=== PATIENT | female | born 1980 | race Caucasian/White ===

== ENCOUNTER 2016-05-01 13:45 | Observation (INO) | payer MEDICAID, OTHER ==
[~2016-05-01 13:45] MED LIST: PENI500T PO; PREN0.01 PO
[2016-05-01 13:46] VITALS: BP 133/83; PULSE 95; RESP 18; TEMP 98.5; O2SAT 98
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
[2016-05-01 16:36] LABS: BLOOD, URINE NEG (NEG); GLUCOSE,URINE NEG (NEG); KETONE, URINE NEG (NEG); NITRITE,URINE NEG (NEG); SQUAMOUS EPITHELIAL CELL URINE 2 /hpf (0-5); URINE COLOR LIGHT-YELLOW (YELLW/STRAW)
[2016-05-01 16:40] LABS: AMPHETAMINE, URINE NEG (NEG); BARBITURATES, URINE NEG (NEG); COCAINE, URINE NEG (NEG)
[2016-05-01 16:42] LABS: AUTOMATED NEUTROPHIL # 4.3 TH/MM3 (1.8-7.7); BASOPHIL # 0.1 TH/MM3 (0-0.2); BASOPHIL % 0.6 % (0.0-2.0); EOSINOPHIL # 0.2 TH/MM3 (0-0.4); EOSINOPHIL % 1.9 % (0.0-4.0); HEMATOCRIT 37.3 % (35.0-46.0); HEMO FLAGS DIFF FINAL; LYMPHOCYTE # 3.5 TH/MM3 (1.0-4.8); MEAN CELL VOLUME 90.1 FL (80.0-100.0); MEAN CORPUSCULAR HEMOGLOBIN 30.4 PG (27.0-34.0); MEAN CORPUSCULAR HGB CONC 33.7 % (32.0-36.0); MONO % 5.6 % (0.0-8.0); NEUT % 50.9 % (16.0-70.0); PLATELET COUNT 228 TH/MM3 (150-450); RED BLOOD COUNT 4.14 MIL/MM3 (4.00-5.30); RED CELL DISTRIBUTION WIDTH 14.1 % (11.6-17.2); WHITE BLOOD COUNT 8.4 TH/MM3 (4.0-11.0)
[2016-05-01 16:51] LABS: ANION GAP 7 MEQ/L (5-15); AST (GOT) 10 U/L (15-37); BICARBONATE 28.4 MEQ/L (21.0-32.0); BLOOD UREA NITROGEN 9 MG/DL (7-18); CHLORIDE 107 MEQ/L (98-107); GLOMERULAR FILTRATION RATE 97 ML/MIN (>89); POTASSIUM 3.5 MEQ/L (3.5-5.1); SODIUM (NA) 142 MEQ/L (136-145)
[2016-05-01 16:54] LABS: ALKALINE PHOSPHATASE 71 U/L (45-117); ALT (GPT) 17 U/L (10-53); TOTAL BILIRUBIN ADULT 0.2 MG/DL (0.2-1.0)
--- NOTE | 2016-05-01 17:47 | RADRPT ---
EXAM DATE/TIME: 05/01/2016 17:30 [facility] COMPARISON: No previous studies available for comparison. INDICATIONS : Seizure; contusion. RADIATION DOSE: 56.35 CTDIvol (mGy) MEDICAL HISTORY : Seizures. SURGICAL HISTORY : None. ENCOUNTER: Initial ACUITY: 1 day PAIN SCALE: 6/10 LOCATION: cranial TECHNIQUE: Multiple contiguous axial images were obtained of the head. Using automated exposure control and adj ustment of the mA and/or kV according to patient size, radiation dose was kept as low as reasonably a chievable to obtain optimal diagnostic quality images. FINDINGS: CEREBRUM: The ventricles are normal for age. No evidence of midline shift, mass lesion, hemorrhage or acute in farction. No extra-axial fluid collections are seen. POSTERIOR FOSSA: The cerebellum and brainstem are intact. The 4th ventricle is midline. The cerebellopontine angle i s unremarkable. EXTRACRANIAL: The visualized portion of the orbits is intact. SKULL: The calvaria is intact. No evidence of skull fracture. CONCLUSION: 1. No evidence of acute intracranial pathology. No masses are identified. Onesimo Andujar MD on May 01, 2016 at 17:45 Board Certified Radiologist. This report was verified electronically.
--- NOTE | 2016-05-01 17:48 | RADRPT ---
EXAM DATE/TIME: 05/01/2016 17:31 [facility] COMPARISON: No previous studies available for comparison. INDICATIONS : Seizure; contusion. RADIATION DOSE: 31.93 CTDIvol (mGy) MEDICAL HISTORY : Seizures. SURGICAL HISTORY : None. ENCOUNTER: Initial ACUITY: 1 day PAIN SCALE: 6/10 LOCATION: Bilateral neck TECHNIQUE: Volumetric scanning of the cervical spine was performed. Multiplanar reconstructions in the sagittal, coronal and oblique axial planes were performed. Using automated exposure control and adjustment o f the mA and/or kV according to patient size, radiation dose was kept as low as reasonably achievable to obtain optimal diagnostic quality images. FINDINGS: VERTEBRAE: Normal vertebral body height. ALIGNMENT: No evidence of subluxation. C2-C3: The bony spinal canal is normal in size. No evidence of disc bulge or herniation. The neural forami na are bilaterally patent. C3-C4: The bony spinal canal is normal in size. No evidence of disc bulge or herniation. The neural forami na are bilaterally patent. C4-C5: The bony spinal canal is normal in size. No evidence of disc bulge or herniation. The neural forami na are bilaterally patent. C5-C6: The bony spinal canal is normal in size. No evidence of disc bulge or herniation. The neural forami na are bilaterally patent. C6-C7: The bony spinal canal is normal in size. No evidence of disc bulge or herniation. The neural forami na are bilaterally patent. C7-T1: The bony spinal canal is normal in size. No evidence of disc bulge or herniation. The neural forami na are bilaterally patent. CONCLUSION: 1. There is no evidence of acute fracture. Oensimo Andujar MD on May 01, 2016 at 17:45 Board Certified Radiologist. This report was verified electronically.
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
[2016-05-01] MEDS ORDERED: lamoTRIgine 25 MG TAB PO ONE (20:15)
[2016-05-01] MEDS ORDERED: LORazepam 2 MG/ML VIAL IV PUSH ONE (20:15)
[2016-05-01] MEDS ORDERED: SODIUM CHLOR 0.9% 1000 ML INJ 1,000 ML IV ONE (20:15)
[2016-05-01] MEDS ORDERED: SODIUM CHLORIDE 0.9% FLUSH 5 ML FLUSH FLUSH PRN (20:45)
[2016-05-01] MEDS ORDERED: NALOXONE HCL 0.4 MG/ML AMP IV PRN (20:45)
[2016-05-01] MEDS ORDERED: ACETAMINOPHEN 325 MG TAB PO ONE (20:45)
[2016-05-01] MEDS: SODIUM CHLORIDE 0.9% FLUSH 5 ML FLUSH FLUSH SCH (21:06)
[2016-05-01] MEDS ORDERED: ADDE10 PO (22:17)
[2016-05-01] MEDS ORDERED: LAMO25 PO (22:17)
[2016-05-01] MEDS ORDERED: XANA2TAB2 PO (22:17)
[2016-05-01 22:18] VITALS: BP 124/81; PULSE 87; RESP 18; O2SAT 99
[2016-05-01 23:32] VITALS: BP 122/77; PULSE 82; RESP 18; O2SAT 96
[2016-05-01] MEDS: ACETAMINOPHEN 325 MG TAB PO PRN (23:56)
[2016-05-02] VITALS (7 sets, daily range): BP systolic 99–139; BP diastolic 59–99; PULSE 75–105; RESP 17–20; TEMP 97.4–98.1; O2SAT 95–100
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
[2016-05-02] MEDS: LORazepam 2 MG/ML VIAL IV PUSH PRN ×3 (07:00→20:10)
[2016-05-02 08:10] LABS: AUTOMATED NEUTROPHIL # 6.1 TH/MM3 (1.8-7.7); BASOPHIL # 0.1 TH/MM3 (0-0.2); EOSINOPHIL # 0.1 TH/MM3 (0-0.4); EOSINOPHIL % 1.2 % (0.0-4.0); HEMATOCRIT 37.5 % (35.0-46.0); HEMO FLAGS DIFF FINAL; LYMPH % 21.6 % (9.0-44.0); LYMPHOCYTE # 1.9 TH/MM3 (1.0-4.8); MEAN CELL VOLUME 89.8 FL (80.0-100.0); MEAN CORPUSCULAR HEMOGLOBIN 30.3 PG (27.0-34.0); MEAN CORPUSCULAR HGB CONC 33.7 % (32.0-36.0); MONO % 5.7 % (0.0-8.0); NEUT % 70.5 % (16.0-70.0); PLATELET COUNT 206 TH/MM3 (150-450); RED BLOOD COUNT 4.18 MIL/MM3 (4.00-5.30); RED CELL DISTRIBUTION WIDTH 13.9 % (11.6-17.2); WHITE BLOOD COUNT 8.7 TH/MM3 (4.0-11.0)
[2016-05-02 08:43] LABS: BICARBONATE 27.2 MEQ/L (21.0-32.0)
[2016-05-02] MEDS ORDERED: ENOXAPARIN SODIUM 40 MG/0.4 ML SYRINGE SQ SCH (09:00)
[2016-05-02] MEDS: SODIUM CHLORIDE 0.9% FLUSH 5 ML FLUSH FLUSH SCH ×2 (09:17→22:15)
[2016-05-02] MEDS: ACETAMINOPHEN 325 MG TAB PO PRN ×2 (09:21→20:51)
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
[2016-05-02] MEDS ORDERED: hydrOXYzine PAMOATE 25 MG CAP PO PRN (10:00)
[2016-05-02] MEDS ORDERED: ESCI10TA PO (11:00)
[2016-05-02] MEDS: ALPRAZolam 1 MG TAB PO SCH ×2 (11:24→20:55)
[2016-05-02] MEDS ORDERED: levETIRAcetam INJ 500 MG in SODIUM CHLORIDE 0.9% INJ 100 ML IV SCH (14:00)
[2016-05-02] MEDS ORDERED: LORazepam 2 MG/ML VIAL IV PUSH ONE (14:00)
[2016-05-02] MEDS: levETIRAcetam INJ 500 MG in SODIUM CHLORIDE 0.9% INJ 100 ML IV SCH ×2 (14:22→22:15)
[2016-05-02] MEDS ORDERED: XANA1TAB2 PO (17:14)
--- NOTE | 2016-05-02 18:25 | MG ---
cc: JACKELINE GOYAL M.D. Lab No: Date: 05/02/2016 Age: Sex: F Race: REQUESTING PHYSICIAN By KANA martinez. INTRODUCTION An EEG was obtained on this 36-year-old patient with a history of being off seizure medications. DESCRIPTION The patient is awake and asleep. EEG showing 8-10 per second mid amplitude alpha activity posteriorly. There are beta rhythms centrally and frontally. There is mild asymmetry in amplitude, perhaps due to technical limitations. The patient enters sleep stages I and II. The tracing remains symmetrical. Some posterior sharps are noted occasionally and even when the patient is awake there is some mild intermixed theta activity. Hyperventilation disclosed no significant change. Photic stimulation showed a bilateral driving response. INTERPRETATION Very minimally abnormal EEG because of mild background slowing intermittently. There is suggestive of very mild diffuse disturbance of cerebral function. No epileptiform features present. MD LEONID Conley/CANDI /6:07 PM /6:20 PM
--- NOTE | 2016-05-02 20:42 | HHI.PR ---
Addendum to Inpatient Note Addendum Reason: Additional Documentation Additional Information Was called by patient's nurse that patient is having seizures. Apparently, patient's called the community relations specialist from outside the hospital stating that patient is having seizures as he was talking to her over the phone. When nursing staff came to examine her, patient was having her telephone in her hand and banking that against the bedside rail apparently having seizures. I came to see patient at the bedside immediately. Patient is noted to be spitting from her mouth. This is not foaming from her mouth. She is also moving her extremities bilaterally although this is not seizure- like patent. It is more of a minor tremors. Vitals reveal blood pressure around 128/80, heart rate around 80, respiratory rate of 18. Saturation 100% on room air. Patient is closing her eyes which is quite obvious purposefully. She is also able to resist gravity on examination. When I woke her up and opened her eyes and told her that she is not having a seizures and this is not what a seizure looks like, she immediately woke up soon as I left the room. And started talking to the nursing staff. Impression Pseudoseizures Patient clearly is seeking secondary gain. We'll be cautious with pain meds/ benzodiazepines etc Leana Loo MD May 02, 2016 20:41
[2016-05-02] MEDS ORDERED: levETIRAcetam INJ 500 MG in SODIUM CHLORIDE 0.9% INJ 100 ML IV ONE (22:15)
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
--- NOTE | 2016-05-03 07:22 | HHI.PR ---
Addendum to Inpatient Note Additional Information Patient left AMA last night Derrick Walton MD May 03, 2016 07:22
== END 2016-05-02 23:00 | disposition left against medical advice (07) ==
LOC: NEPE 13:45 → NEDA 20:32 → NEPHCDU 22:45
PROVIDERS: ADMIT Internal Medicine; ATTEND Internal Medicine
DX: G40.409 Other generalized epilepsy and epileptic syndromes, not intractable, without status epilepticus (principal); F13.239 Sedative, hypnotic or anxiolytic dependence with withdrawal, unspecified; F43.10 Post-traumatic stress disorder, unspecified; F41.1 Generalized anxiety disorder; R51 Headache; M54.2 Cervicalgia; Z72.0 Tobacco use
CPT/HCPCS: 70450; 72125; 80048; 80053; 80307; 81001; 84703; 85025; 95819; 99285; G0378; J1650; J1953; J2060; J7030

== ENCOUNTER 2017-07-30 09:06 | Emergency (ER) | payer OTHER ==
[~2017-07-30] VITALS: Ht 157.5 cm; Wt 70.0 kg
[~2017-07-30 09:06] MED LIST changes: +ALPR2TAB3 PO; +KEPP10002 PO; -PENI500T PO; -PREN0.01 PO; +TYLE325T PO
[2017-07-30 09:29] VITALS: BP 123/68; PULSE 90; RESP 18; TEMP 98.1; O2SAT 99
[2017-07-30] MEDS ORDERED: FOSPHENYTOIN INJ 1,500 MGPE in SODIUM CHLORIDE 0.9% INJ 100 ML IV ONE (10:00)
[2017-07-30] MEDS ORDERED: SODIUM CHLORIDE 0.9% FLUSH 10 ML FLUSH IV FLUSH PRN (10:00)
--- NOTE | 2017-07-30 10:01 | PD ---
HPI . Seizure Chief Complaint: Seizure Time Seen by Provider: 09:43 Travel History International Travel<30 days: No Contact w/Intl Traveler<30days: No Traveled to known affect area: No History of Present Illness HPI This is a homeless patient with a history of seizures who presents to us this morning complaining with 2 seizures. She had one last night and another one this morning. She states that she has been off of her meds since July 25. She states that her medications were prescribed at an outside hospital where she was [place]. Those prescriptions have run out. She has subsequently moved from [facility] to [facility] and has not yet established care in our area. She states that she is supposed to be on Dilantin. In addition to the seizures, she is complaining with some intermittent upper abdominal pain as well as some right back pain. She states that she has had some nausea and vomiting she reports a headache. Onset of her current symptoms was last night and the symptoms are mild. PFSH Past Medical History Arthritis: Yes (rheumatoid) Autoimmune Disease: Yes (Lupus) Blood Disorders: No Anxiety: Yes (panic disorder, agoraphobia) Cancer: No Cardiovascular Problems: No Endocrine: No Gastrointestinal Disorders: No Genitourinary: No Implanted Vascular Access Dvce: No Musculoskeletal: No Neurologic: Yes Psychiatric: Yes Reproductive: No Respiratory: No Seizures: Yes ?: Not LMP: 07-25-18 Past Surgical History Section: Yes Gynecologic Surgery: Yes (bilateral tubal ligation) Other Surgery: Yes (from surgery, hand surgery) Social History Alcohol Use: No Tobacco Use: Yes Substance Use: Yes Allergies-Medications (Allergen,Severity, Reaction): Coded Allergies: Sulfa (Sulfonamide Antibiotics) (Unverified Allergy, Intermediate, 07/30/17) ketorolac (Unverified Allergy, Mild, Rash, 07/30/17) buspirone (Verified Allergy, Unknown, 07/30/17) tramadol (Unverified Allergy, Unknown, 07/30/17) Reported Meds & Prescriptions Reported Meds & Active Scripts Active Tylenol (Acetaminophen) 325 Mg Tab 650 Mg PO Q6H PRN Reported Alprazolam 2 Mg Tab 2 Mg PO TID Keppra (Levetiracetam) 1,000 Mg Tab 1,000 Mg PO BID Review of Systems Except as stated in HPI: all other systems reviewed are Neg General / Constitutional: No: Fever, Chills Eyes: No: Blurred Vision HENT: Positive: Headaches Cardiovascular: No: Chest Pain or Discomfort Respiratory: No: Shortness of Breath Gastrointestinal: Positive: Nausea, Vomiting, Abdominal Pain, No: Diarrhea Genitourinary: No: Urgency, Frequency, Dysuria Musculoskeletal: Positive: Myalgias Neurologic: Positive: Seizures, No: Incontinence Physical Exam Narrative GENERAL: Patient is awake and alert and is visiting with 2 other homeless people in her room. SKIN: warm/dry. I do not see any bruises, abrasions or lacerations. HEAD: Normocephalic. Atraumatic. EYES: Pupils equal and round. Extraocular movements are intact. ENT: Mucous membranes pink and moist. She has no upper teeth. No evidence of injury to the tongue. NECK: Supple. Full range of motion without pain. Nontender. CARDIOVASCULAR: Regular rate and rhythm. Heart sounds are normal. RESPIRATORY: No accessory muscle use. Clear to auscultation. Breath sounds equal bilaterally. GASTROINTESTINAL: Abdomen soft. Nontender. Bowel sounds present. Nondistended. : No evidence of incontinence. MUSCULOSKELETAL: No obvious deformities. Normal muscle tone. She is not having any difficulty moving with regards to her neck or back. NEUROLOGICAL: Awake and alert. No obvious cranial nerve deficits. Motor grossly within normal limits. Normal speech. PSYCHIATRIC: Appropriate mood and affect; insight and judgment normal. Data Data Last Documented VS Vital Signs Date Time Temp Pulse Resp B/P (MAP) Pulse Ox O2 Delivery O2 Flow Rate FiO2 07/30/17 09:29 98.1 90 18 123/68 (86) 99 Orders Orders Complete Blood Count With Diff (07/30/17 09:51) Comprehensive Metabolic Panel (07/30/17 09:51) Lipase (07/30/17 09:51) Urinalysis - C+S If Indicated (07/30/17 09:51) Iv Access Insert/Monitor (07/30/17 09:51) Sodium Chloride 0.9% Flush (Ns Flush) (07/30/17 10:00) Ed Urine Pregnancytest Poc (07/30/17 09:51) Fosphenytoin Inj (Cerebyx Inj) (07/30/17 10:00) Ondansetron Odt (Zofran Odt) (6/4/18 11:15) Ed Discharge Order (07/30/17 11:17) Labs Laboratory Tests Test 07/30/17 10:12 White Blood Count 9.7 TH/MM3 Red Blood Count 4.30 MIL/MM3 Hemoglobin 13.6 GM/DL Hematocrit 39.0 % Mean Corpuscular Volume 90.7 FL Mean Corpuscular Hemoglobin 31.6 PG Mean Corpuscular Hemoglobin Concent 34.9 % Red Cell Distribution Width 13.4 % Platelet Count 318 TH/MM3 Mean Platelet Volume 8.1 FL Neutrophils (%) (Auto) 68.6 % Lymphocytes (%) (Auto) 24.5 % Monocytes (%) (Auto) 5.4 % Eosinophils (%) (Auto) 0.7 % Basophils (%) (Auto) 0.8 % Neutrophils # (Auto) 6.6 TH/MM3 Lymphocytes # (Auto) 2.4 TH/MM3 Monocytes # (Auto) 0.5 TH/MM3 Eosinophils # (Auto) 0.1 TH/MM3 Basophils # (Auto) 0.1 TH/MM3 CBC Comment DIFF FINAL Differential Comment Urine Color YELLOW Urine Turbidity HAZY Urine pH 5.5 Urine Specific [place] 1.029 Urine Protein TRACE mg/dL Urine Glucose (UA) NEG mg/dL Urine Ketones NEG mg/dL Urine Occult Blood MOD Urine Nitrite NEG Urine Bilirubin NEG Urine Urobilinogen LESS THAN 2.0 MG/DL Urine Leukocyte Esterase TRACE Urine RBC 1 /hpf Urine WBC 2 /hpf Urine Squamous Epithelial Cells 2 /hpf Urine Bacteria RARE /hpf Urine Mucus FEW /lpf Microscopic Urinalysis Comment CULT NOT INDICATED Blood Urea Nitrogen 18 MG/DL Creatinine 0.76 MG/DL Random Glucose 72 MG/DL Total Protein 8.2 GM/DL Albumin 4.1 GM/DL Calcium Level 8.6 MG/DL Alkaline Phosphatase 102 U/L Aspartate Amino Transf (AST/SGOT) 30 U/L Alanine Aminotransferase (ALT/SGPT) 46 U/L Total Bilirubin 0.3 MG/DL Sodium Level 139 MEQ/L Potassium Level 3.9 MEQ/L Chloride Level 106 MEQ/L Carbon Dioxide Level 21.2 MEQ/L Anion Gap 12 MEQ/L Estimat Glomerular Filtration Rate 87 ML/MIN Lipase 55 U/L [facility] Medical Decision Making Medical Screen Exam Complete: Yes Emergency Medical Condition: Yes Differential Diagnosis Differential diagnosis of seizure includes but is not limited to epilepsy, electrolyte abnormality, previous stroke, closed head injury Differential diagnosis of abdominal pain includes but is not limited to gastritis, pancreatitis, hepatitis, gastroenteritis, constipation, urinary retention, peptic ulcer disease, diverticulitis or appendicitis Differential diagnosis of flank pain includes but is not limited to kidney stone , pyelonephritis, musculoskeletal pain, PE, AAA Differential diagnosis includes but is not limited to viral gastritis, food poisoning, pancreatitis, pneumonia, hepatitis, acute coronary syndrome, Narrative Course This patient presents with the chief complaint of seizures 2 since last night. She is also complaining with nausea and vomiting today, intermittent upper abdominal pain for a while., Intermittent right flank pain also for a while. I have ordered some baseline labs. She has not been on her Dilantin for the last several days because she is out of her prescription. I will load her here with fosphenytoin. CBC & BMP Diagram 07/30/17 10:12 Total Protein 8.2, Albumin 4.1, Calcium Level 8.6, Alkaline Phosphatase 102, Aspartate Amino Transf (AST/SGOT) 30, Alanine Aminotransferase (ALT/SGPT) 46, Total Bilirubin 0.3, Lipase 55 UA neg This patient has had no further seizure activity in the emergency department. She has also had no vomiting here she is medically clear for discharge. The history, exam, diagnostic testing, and current condition do not suggest any significant pathology to warrant further testing, continued ED treatment, admission, or surgical evaluation at this point. No EMC was found. The patient 's condition is stable and appropriate for discharge. Diagnosis Primary Impression: Seizure Additional Impressions: Abdominal pain Qualified Codes: R10.10 - Upper abdominal pain, unspecified Vomiting Qualified Codes: R11.2 - Nausea with vomiting, unspecified Disposition: 01 DISCHARGE HOME Condition: Stable Tejal Villela MD Jul 30, 2017 10:00
[2017-07-30 10:30] LABS: AUTOMATED NEUTROPHIL # 6.6 TH/MM3 (1.8-7.7); BASOPHIL # 0.1 TH/MM3 (0-0.2); BASOPHIL % 0.8 % (0.0-2.0); EOSINOPHIL # 0.1 TH/MM3 (0-0.4); EOSINOPHIL % 0.7 % (0.0-4.0); HEMOGLOBIN 13.6 GM/DL (11.6-15.3); LYMPH % 24.5 % (9.0-44.0); LYMPHOCYTE # 2.4 TH/MM3 (1.0-4.8); MEAN CELL VOLUME 90.7 FL (80.0-100.0); MEAN CORPUSCULAR HEMOGLOBIN 31.6 PG (27.0-34.0); MEAN CORPUSCULAR HGB CONC 34.9 % (32.0-36.0); MEAN PLATELET VOLUME 8.1 FL (7.0-11.0); MONO % 5.4 % (0.0-8.0); MONOCYTE # 0.5 TH/MM3 (0-0.9); NEUT % 68.6 % (16.0-70.0); PLATELET COUNT 318 TH/MM3 (150-450); RED CELL DISTRIBUTION WIDTH 13.4 % (11.6-17.2); WHITE BLOOD COUNT 9.7 TH/MM3 (4.0-11.0)
[2017-07-30 10:33] LABS: BACTERIA, URINE RARE /hpf; BILIRUBIN, URINE NEG (NEG); BLOOD, URINE MOD (NEG); GLUCOSE,URINE NEG (NEG); KETONE, URINE NEG (NEG); MUCUS URINE FEW /lpf (OCC); NITRITE,URINE NEG (NEG); PH, URINE 5.5 (5.0-8.5); SQUAMOUS EPITHELIAL CELL URINE 2 /hpf (0-5); URINE COLOR YELLOW (YELLW/STRAW); URINE LEUKOCYTE ESTERASE TRACE (NEG)
[2017-07-30 11:04] LABS: ALT (GPT) 46 U/L (10-53)
[2017-07-30 11:06] LABS: ALKALINE PHOSPHATASE 102 U/L (45-117); TOTAL BILIRUBIN ADULT 0.3 MG/DL (0.2-1.0); TOTAL PROTEIN 8.2 GM/DL (6.4-8.2)
[2017-07-30 11:08] LABS: ALBUMIN 4.1 GM/DL (3.4-5.0); AST (GOT) 30 U/L (15-37); BICARBONATE 21.2 MEQ/L (21.0-32.0); BLOOD UREA NITROGEN 18 MG/DL (7-18); CALCIUM 8.6 MG/DL (8.5-10.1); CHLORIDE 106 MEQ/L (98-107); CREATININE 0.76 MG/DL (0.50-1.00); GLOMERULAR FILTRATION RATE 87 ML/MIN (>89); GLUCOSE,RANDOM 72 MG/DL (74-106); SODIUM (NA) 139 MEQ/L (136-145)
[2017-07-30] MEDS ORDERED: ONDANSETRON ODT 4 MG TAB PO ONE (11:15)
== END 2017-07-30 12:08 | disposition home or self-care (01) ==
LOC: NEPD 09:06
DX: R56.9 Unspecified convulsions (principal); R10.10 Upper abdominal pain, unspecified; R11.2 Nausea with vomiting, unspecified
CPT/HCPCS: 80053; 81001; 83690; 84703; 85025; 96365; 99284; Q2009